=== PATIENT | male | born 1955 ===

== ENCOUNTER 2017-11-27 06:58 | Day surgery (SDC) | payer MEDICAID ==
[2017-11-27] MEDS ORDERED: Lactated Ringer's 500 ML IV ONE (07:31)
[2017-11-27] MEDS ORDERED: Tetracaine 0.5% Ophth (OR ONLY) ONE (07:41)
[2017-11-27] MEDS ORDERED: Povidone Iodine Ophthalmic 5% Soln ONE (07:41)
[2017-11-27] MEDS ORDERED: Carbachol 0.01% IO ONE (07:42)
[2017-11-27] MEDS ORDERED: Chondroitin/Hyaluronate Opth Syringe KIT (0.55 ml-0.5 ml) IO ONE (07:42)
[2017-11-27] MEDS ORDERED: Tobramycin/Dexamethasone OPHT OINT ONE (07:42)
[2017-11-27] MEDS ORDERED: Hyaluronidase Human, Recombi 150 U/ML VIAL ONE (07:42)
[2017-11-27] MEDS ORDERED: Cyclopentolate 1% Opth (2 ml) OS SCH (07:45)
[2017-11-27] MEDS ORDERED: Phenylephrine 2.5% Opht Soln OS SCH (07:45)
[2017-11-27] MEDS ORDERED: Ketorolac Tromethamine 0.5% Opth Soln (3 ml) OS SCH (07:45)
[2017-11-27] MEDS ORDERED: Ofloxacin 0.3% Ophth Soln OS SCH (07:45)
[2017-11-27] MEDS ORDERED: Tropicamide 0.5% Opht Sol OS SCH (07:45)
[2017-11-27] MEDS ORDERED: Lactated Ringer's 1,000 ML IV ONE (08:15)
[2017-11-27] MEDS ORDERED: Propofol 10 mg/ml Inj (20 ML) ONE (10:28)
[2017-11-27] MEDS ORDERED: Lidocaine Hydrochloride 5 ML INJ ONE (10:29)
[2017-11-27 11:58] VITALS: BP 105/71; PULSE 81; RESP 20; TEMP 97.8; O2SAT 99
--- NOTE | 2017-11-28 06:13 | OP ---
PROCEDURE DATE: 11/27/2017 PREOPERATIVE DIAGNOSIS: CATARACT, LEFT EYE. POSTOPERATIVE DIAGNOSIS: CATARACT, LEFT EYE. OPERATIVE PROCEDURE: CATARACT EXTRACTION WITH IMPLANT, LEFT EYE. ANESTHESIA TYPE: Local standby. COMPLICATIONS: None. PROCEDURE: Local anesthesia was achieved using a mixture of 1% lidocaine and Amphadase. The patient was then prepped and draped in the usual sterile fashion for ophthalmic surgery. Betadine drops were placed into the eye. A lid speculum was used and a sideport incision was made using a 15 degree blade. Viscoelastic was used to fill the anterior chamber and a 2.7 millimeter slit blade was used to create a surgical opening. Additional viscoelastic was placed into the eye and a capsulorrhexis was performed. Hydrodissection and delineation were then carried out. Phacoemulsification of the nucleus was performed with ease and cortical cleanup was achieved without difficulty. The capsular bag was refilled using viscoelastic and a posterior chamber lens was inserted through the existing wound and placed into the capsular bag and easily centered. All viscoelastic was then aspirated from the eye and Miochol was instilled for good symmetric pupillary constriction. The sideport wound was hydrated as necessary and a good watertight closure was observed at the conclusion of the case. A TobraDex soaked collagen shield was then placed over the eye. The lid speculum was removed. TobraDex ointment was placed onto the eye and a patch and shield were placed. The patient tolerated the procedure well. Jesse Gandhi MD
== END 2017-11-27 11:55 | disposition home or self-care (01) ==
LOC: C.SDS 06:58
PROVIDERS: ATTEND Ophthalmology
DX: H25.12 Age-related nuclear cataract, left eye (principal)
CPT/HCPCS: 66984; 82948; J2704; J3470; J7120; V2632

== ENCOUNTER 2018-01-01 12:01 | Day surgery (SDC) | payer MEDICAID ==
[2017-12-21 08:54] VITALS: BMI 27.8
[~2018-01-01 12:01] MED LIST: Carbachol 0.01% IO ONE; Cyclopentolate 1% Opth (2 ml) OD SCH; Hyaluronidase Human, Recombi 150 U/ML VIAL ONE; Ketorolac Tromethamine 0.5% Opth Soln (3 ml) OD SCH; Lactated Ringer's 500 ML IV ONE; Ofloxacin 0.3% Ophth Soln OD SCH; Phenylephrine 2.5% Opht Soln OD SCH; Tetracaine 0.5% Ophth (OR ONLY) ONE; Tropicamide 0.5% Opht Sol OD SCH
[2018-01-01] MEDS ORDERED: Lactated Ringer's 1,000 ML IV ONE (12:46)
[2018-01-01] MEDS: Chondroitin/Hyaluronate Opth Syringe KIT (0.55 ml-0.5 ml) IO ONE ×2 (16:02→16:03)
[2018-01-01] MEDS ORDERED: Propofol 10 mg/ml Inj (20 ML) ONE (16:08)
[2018-01-01 17:00] VITALS: RESP 20; TEMP 97.6
[2018-01-01 17:22] VITALS: BP 120/72; PULSE 78; O2SAT 100
--- NOTE | 2018-01-07 11:00 | OP ---
PROCEDURE DATE: 01/01/2018 PREOPERATIVE DIAGNOSIS: CATARACT. RIGHT EYE. POSTOPERATIVE DIAGNOSIS: CATARACT, RIGHT EYE. OPERATIVE PROCEDURE: CATARACT EXTRACTION WITH IMPLANT, RIGHT EYE. ANESTHESIA TYPE: Local, standby. COMPLICATIONS: None. PROCEDURE: Local anesthesia was achieved using a mixture of 1% lidocaine and Amphadase. The patient was then prepped and draped in the usual sterile fashion for ophthalmic surgery. Betadine drops were placed into the eye. A lid speculum was used and a sideport incision was made using a 15 degree blade. Viscoelastic was used to fill the anterior chamber and a 2.7 millimeter slit blade was used to create a surgical opening. Additional viscoelastic was placed into the eye and a capsulorrhexis was performed. Hydrodissection and delineation were then carried out. Phacoemulsification of the nucleus was performed with ease and cortical cleanup was achieved without difficulty. The capsular bag was refilled using viscoelastic and a posterior chamber lens was inserted through the existing wound and placed into the capsular bag and easily centered. All viscoelastic was then aspirated from the eye and Miochol was instilled for good symmetric pupillary constriction. The sideport wound was hydrated as necessary and a good watertight closure was observed at the conclusion of the case. A TobraDex soaked collagen shield was then placed over the eye. The lid speculum was removed. TobraDex ointment was placed onto the eye and a patch and shield were placed. The patient tolerated the procedure well. Jesse Gandhi MD
== END 2018-01-01 17:24 | disposition home or self-care (01) ==
LOC: C.SDS 12:01
PROVIDERS: ATTEND Ophthalmology
DX: H25.11 Age-related nuclear cataract, right eye (principal)
CPT/HCPCS: 66984; 82948; J2704; J3470; J7120; V2632